=== PATIENT | male | born 1960 | race Caucasian/White ===

== ENCOUNTER 2024-01-07 19:28 | Outpatient (REF) | payer MEDICARE, SELFPAY ==
--- NOTE | ~2024-01-07 | MR_ITS ---
EXAMINATION: MR LOWER EXTREMITY WITHOUT CONTRAST, RIGHT LOWER CLINICAL INFORMATION: Right lower extremity swelling. Gastrocnemius/Achilles tendon tear. Possible tibial nerve injury. COMPARISON: Right ankle radiographs dated 03/23/2023. TECHNIQUE: Multisequence MR imaging of the right lower leg was obtained without contrast on a high-field strength scanner. FINDINGS: BONE: No marrow edema or evidence of acute osseous injury. No stress reaction, fracture, or avascular necrosis. No concerning lytic or blastic osseous lesion. MUSCLES/TENDONS: Mild edema within the gastrocnemius and soleus muscles extending distally to the myotendinous junction with the Achilles, consistent mild strains. There is a small focus of fluid along the superomedial aspect of the soleus/myotendinous junction abutting the undersurface of the medial gastrocnemius muscle measuring up to 4.6 x 2.3 cm (CC x ML), likely representing a small intrasubstance partial tear. Prominent thickening of the distal Achilles tendon, consistent with prominent chronic tendinosis. No full-thickness transverse muscle or tendon tear or tendon retraction. LIGAMENTS: No evidence of acute ligament injury. Both right knee and right ankle ligaments somewhat limited on large field of view imaging. SOFT TISSUES: No soft tissue mass or organized fluid collection. No significant knee joint effusion. MR/MR lower leg RT wo con IMPRESSION: 1. Mild strains of the gastrocnemius and soleus muscles extending distally to the Achilles myotendinous junction. Probable small intrasubstance partial tear along the superomedial aspect of the soleus myotendinous junction measuring up to 4.6 x 2.3 cm. No full-thickness transverse muscle or tendon tear or tendon retraction. 2. Prominent chronic Achilles tendinosis without a measurable tendon tear or tendon retraction. 3. No acute osseous abnormality.
== END 2024-01-07 19:29 | disposition home or self-care (01) ==
LOC: HO.MRI 19:28
PROVIDERS: PCP Internal Medicine; Visit Provider Psychiatry & Neurology Neurology
DX: G20.A1 Parkinson's disease without dyskinesia, without mention of fluctuations (principal)
CPT/HCPCS: 73718